=== PATIENT | female | born 1940 | race Caucasian/White ===

== ENCOUNTER → 2020-10-05 06:38 | Outpatient (CLI) | payer MEDICARE, SELFPAY ==
[2020-10-05 23:33] LABS: SARS-CoV-2 RNA PCR Negative
== END ==
PROVIDERS: PCP Internal Medicine; Visit Provider Pain Medicine Pain Medicine
DX: Z01.812 Encounter for preprocedural laboratory examination (principal); Z20.822 Contact with and (suspected) exposure to COVID-19
CPT/HCPCS: C9803; U0003; U0005

== ENCOUNTER 2021-10-08 09:25 | Emergency (ER) | payer MEDICARE, SELFPAY ==
[2021-10-08 09:44] VITALS: BP 154/61; PULSE 73; RESP 16; TEMP 36.9; O2SAT 98
--- NOTE | 2021-10-08 09:53 | ED.URI ---
HPI - URI/Sore Throat General Chief Complaint: Upper Respiratory Infection Stated Complaint: Sore Throat/Dizziness/Fever Time Seen by Provider: 10/08/21 10:37 Source: patient and RN notes reviewed Mode of arrival: ambulatory Limitations: no limitations History of Present Illness HPI Narrative: 81-year-old female presents with concern for 5-day history of sore throat, dry cough, low-grade fever, lightheadedness, fatigue, nasal congestion. She reports she had a negative COVID test yesterday at [facility]. Reports she has been taking [id number] cold and flu medicines with little relief. She is also been taking ibuprofen. She is vaccinated and boosted for COVID. MD elicited complaint: cough and sore throat Related Data Home Medications Medication Instructions Recorded Confirmed ezetimibe 10 mg tablet 10 mg PO DAILY 05/04/19 10/08/21 sertraline 50 mg tablet 50 mg PO DAILY 05/04/19 10/08/21 Enzymedica 1 tab-cap PO AC 05/30/19 10/08/21 Marcia Liver Cleanse 1 tablet PO BID 05/30/19 10/08/21 calcium carbonate-vitamin D3 1 tablet PO DAILY 05/30/19 10/08/21 [Calcium 600 with Vitamin D3] lisinopril 20 mg PO DAILY 10/08/21 10/08/21 Allergies Allergy/AdvReac Type Severity Reaction Status Date / Time Sulfa (Sulfonamide Allergy Intermediate nausea and Verified 10/08/21 10:20 Antibiotics) chills Review of Systems Review of Systems: CONSTITUTIONAL: Reports malaise, fatigue, generalized weakness, low-grade fever. EYES: Denies visual changes, redness, or discharge. ENT: Reports rhinorrhea, congestion, and sore throat. Denies sinus pain, otalgia CARDIOVASCULAR: Denies chest pain, palpitations, or edema. RESPIRATORY: Reports dry cough. Denies dyspnea. GASTROINTESTINAL: Denies abdominal pain, nausea, vomiting, diarrhea SKIN: Denies rash or itching. MUSCULOSKELETAL: Denies myalgia. NEUROLOGIC: Reports headache. All systems reviewed & are unremarkable except as noted in HPI and below PMFSH Past Medical History Medical History Arthritis Depression GERD (gastroesophageal reflux disease) Hyperlipidemia Family History Family History Father Bone cancer Alcoholism Mother Bone cancer Social History Social History Smoking status: Never smoker Alcohol intake: current Substance use: never Substance use type: does not use Comments At time of signature, agree with nursing past medical, surgical, social and family history. There is no relevant family history pertinent to the presenting complaint Exam Narrative: GENERAL: Nontoxic-appearing and in no acute distress. HEAD: Normocephalic EYES: PERRLA, conjunctivae clear ENT: Nares clear, clear discharge. Mucous membranes moist. Oropharynx erythematous without lesions. Tonsils enlarged and without exudate, no drooling, no hoarseness, no trismus, uvula midline. NECK: Supple. No lymphadenopathy CHEST: Clear to auscultation, breath sounds equal. No wheezing, rhonchi, rales, or stridor. No respiratory distress, speaks in full sentences. HEART: Regular rate and rhythm. No murmur heard. SKIN: Warm, dry, no rash. NEURO: Alert and oriented x3. PSYCH: Normal mood and affect Course Course Emergency Course: Patient is aware of diagnosis, understands and agrees to treatment plan. Anticipatory guidance given. Patient agrees to follow-up as directed and is aware of reasons to seek care at the emergency department. Portions of this record may have been created with voice recognition software Level of Care: Express Care Visit Vital Signs Vital signs: Vital Signs Temperature 98.5 F 10/08/21 09:44 Pulse Rate 73 10/08/21 09:44 Respiratory Rate 16 10/08/21 09:44 Blood Pressure 154/61 H 10/08/21 09:44 Pulse Oximetry 98 10/08/21 09:44 Temperature 98.5 F 10/08/21 09:44 Pulse Rate 73
[2021-10-08 20:17] LABS: SARS-CoV-2 RNA PCR Negative
== END 2021-10-08 10:57 | disposition home or self-care (01) ==
PROVIDERS: Emergency Provider Nurse Practitioner; PCP Internal Medicine
DX: J02.0 Streptococcal pharyngitis (principal); Z20.822 Contact with and (suspected) exposure to COVID-19; M19.90 Unspecified osteoarthritis, unspecified site; F32.9 Major depressive disorder, single episode, unspecified; K21.9 Gastro-esophageal reflux disease without esophagitis; E78.5 Hyperlipidemia, unspecified
CPT/HCPCS: 87880; 99213; C9803; G0463; U0003; U0005

== ENCOUNTER 2021-12-31 09:05 | Emergency (ER) | payer MEDICARE, SELFPAY ==
[2021-12-31 09:11] VITALS: BP 180/72; PULSE 70; RESP 20; TEMP 36.6; O2SAT 98
--- NOTE | 2021-12-31 09:22 | ED.EAR ---
HPI - Ear Problem General Chief complaint: Ear Stated complaint: Ear Pain Time Seen by Provider: 12/31/21 09:12 Source: patient and RN notes reviewed History of Present Illness HPI Narrative: Patient is an 81-year-old female who presents the urgent care with complaints of decreased hearing bilaterally. Patient states that yesterday she felt fullness in the right ear and then today she is unable to hear out of both ears. Patient states that she does wear hearing aids. Patient is not done anything [id number] for her issues. No other acute complaints. Denies of any drainage or pain in the ears. No acute distress noted. Patient aware of the a plan of care. Some parts of this dictation were generated by voice recognition software and may contain typographical and/or grammatical inaccuracies. Related Data Home Medications Medication Instructions Recorded Confirmed ezetimibe 10 mg tablet 10 mg PO DAILY 05/04/19 12/31/21 sertraline 50 mg tablet 50 mg PO DAILY 05/04/19 12/31/21 calcium carbonate 600 mg-vitamin 1 tablet PO DAILY 05/30/19 12/31/21 D3 10 mcg (400 unit) chewable tablet (Calcium 600 with Vitamin D3) lisinopril 20 mg tablet 20 mg PO DAILY 10/08/21 12/31/21 esomeprazole magnesium 40 mg 40 mg PO DAILY 12/31/21 12/31/21 capsule,delayed release Allergies Allergy/AdvReac Type Severity Reaction Status Date / Time Sulfa (Sulfonamide Allergy Intermediate nausea and Verified 12/31/21 09:07 Antibiotics) chills Review of Systems Review of Systems: CONSTITUTIONAL: Denies fever, chills, or sweats. EYES: Denies visual changes, redness, or discharge. ENT: Denies rhinorrhea, congestion, sore throat. Reports of decreased hearing bilaterally CARDIOVASCULAR: Denies chest pain, palpitations, or edema. RESPIRATORY: Denies cough or dyspnea. GASTROINTESTINAL: Denies abdominal pain, nausea, vomiting, or diarrhea. GENITOURINARY: Denies dysuria or hematuria. SKIN: Denies rash or itching. MUSCULOSKELETAL: Denies back pain, joint pain, or myalgia. NEUROLOGIC: Denies headache, numbness, or weakness. All other systems reviewed are negative, except as documented in HPI. [facility] Past Medical History Medical History Arthritis Depression GERD (gastroesophageal reflux disease) Hyperlipidemia Family History Family History Father Bone cancer Alcoholism Mother Bone cancer Social History Social History Smoking status: Never smoker Alcohol intake: current Substance use: never Substance use type: does not use Comments At the time of my signature, I reviewed and agree with the nursing past medical, surgical, social, and family history. There is no relevant family history pertinent to the patient complaint. Exam Narrative: GENERAL: This is a well-nourished, well-developed patient, in no apparent distress. HEAD: normocephalic, atraumatic. EYES: PERRL. Sclera clear/white. Vision is grossly intact. EARS: External ears normal, auditory canals clear and without drainage, unable to visualize bilateral TMs due to cerumen impaction. Hearing grossly intact. NOSE: External nose normal with no obvious nasal discharge, nares without redness, no rhinorrhea. THROAT: Mucous membranes moist NECK: Neck supple SKIN: warm, intact with no suspicious lesions or rash, good texture and turgor. NEURO: awake, alert, and oriented to person, place and time. There were no obvious focal neurologic abnormalities. EXTREMITIES: No clubbing, cyanosis, or edema. Course Course Level of Care: Express Care Visit Vital Signs Vital signs: Vital Signs Temperature 98 F 12/31/21 09:11 Pulse Rate 70 12/31/21 09:11 Respiratory Rate 20 12/31/21 09:11 Blood Pressure 180/72 H 12/31/21 09:11 Pulse Oximetry 98 12/31/21 09:11 Oxygen Delivery Room Air 12/31/21
== END 2021-12-31 09:55 | disposition home or self-care (01) ==
PROVIDERS: Emergency Provider Nurse Practitioner Family; PCP Internal Medicine
DX: H61.23 Impacted cerumen, bilateral (principal); M19.90 Unspecified osteoarthritis, unspecified site; K21.9 Gastro-esophageal reflux disease without esophagitis; E78.5 Hyperlipidemia, unspecified; F32.A Depression, unspecified
CPT/HCPCS: 69210; 99213; G0463

== ENCOUNTER 2022-07-24 09:55 | Emergency (ER) | payer MEDICARE, SELFPAY ==
--- NOTE | ~2022-07-24 | XR_ITS ---
EXAMINATION: XR lumbar spine 2-3V DATE: 07/24/2022 10:32 INDICATION: Bilateral low back pain. Leg weakness. TECHNIQUE: 6 views of lumbar spine were obtained. COMPARISON: None. FINDINGS: There is 16 degrees levoscoliosis of thoracolumbar spine. There are chronic compression fra ctures of T12 and L1 with changes of vertebroplasty in T12. There is mildly decreased disc height at L1-L2 and L2-L3 and severely decreased disc height at L4-L5 and L5-S1. There is severe facet joint os teoarthritis in lower lumbar spine. IMPRESSION: 1. Severe lumbar spondylosis. 2. Thoracolumbar levoscoliosis. Reviewed, dictated and finalized at location [facility]
[2022-07-24 10:08] VITALS: BP 137/70; PULSE 91; RESP 18; TEMP 36.9; O2SAT 98
--- NOTE | 2022-07-24 10:16 | ED.BACK ---
HPI - Back Pain/Injury General Chief Complaint: Back Pain/Injury Stated Complaint: pain in upper left back Time Seen by Provider: 07/24/22 10:16 Source: patient, RN notes reviewed and old records reviewed Mode of arrival: ambulatory Limitations: no limitations History of Present Illness HPI Narrative: 82 year old female who presents to [facility] with 2 day history of lumbar back with some upper leg weakness with no radiation of pain down her buttocks or into her legs. Patient reports that she has had a prior compression fracture to her back and had cement inserted into fracture as repair about 2 years ago. Patient reported no recent falls, reports that last week she had a bag of books that she pulled on to move. Patient reports that she has no tingling or numbness sensation in her legs and denies any difficulty passing her urine or stools. Patient is wearing a back support today which she states that she worse when she had compression fracture. Patient has been taking Tylenol using heat and ice, reports that she can't take Ibuprofen due to stomach issues. Patient ambulates with slow steady gait. MD elicited complaint: back pain Pertinent past history: other (prior spinal surgery) Onset (ago): day(s) (2) Pain scale (0-10): 8 Quality: dull Location: lumbar spine Radiation: none Associated symptoms: weakness Treatments prior to arrival: cold therapy, heat therapy and acetaminophen Work related injury: No Related Data Home Medications Medication Instructions Recorded Confirmed ezetimibe 10 mg tablet 10 mg PO DAILY 05/04/19 07/24/22 sertraline 50 mg tablet 50 mg PO DAILY 05/04/19 07/24/22 calcium carbonate 600 mg-vitamin 1 tablet PO DAILY 05/30/19 07/24/22 D3 10 mcg (400 unit) chewable tablet (Calcium 600 with Vitamin D3) lisinopril 20 mg tablet 20 mg PO BID 10/08/21 07/24/22 esomeprazole magnesium 40 mg 40 mg PO DAILY 12/31/21 07/24/22 capsule,delayed release calcium carb-Ca gluc 500 mg tablet PO 07/24/22 calcium-magnesium ox-Mg gluc 250 mg tablet (Calcium Magnesium) Allergies Allergy/AdvReac Type Severity Reaction Status Date / Time Sulfa (Sulfonamide Allergy Intermediate nausea and Verified 07/24/22 10:01 Antibiotics) chills Review of Systems Review of Systems: CONSTITUTIONAL: Denies fever, chills, or sweats. CARDIOVASCULAR: Denies chest pain, palpitations, or edema. RESPIRATORY: Denies cough or dyspnea. GASTROINTESTINAL: Denies abdominal pain, nausea, vomiting, or diarrhea. GENITOURINARY: Denies dysuria or hematuria. SKIN: Denies rash or itching. MUSCULOSKELETAL: Reports lumbar back pain. No other joint pain reported or myalgia. NEUROLOGIC: Denies headache, numbness, reports some weakness to her thigh region, gait steady All systems reviewed & are unremarkable except as noted in HPI and below PMFSH Past Medical History Medical History (Updated 07/25/22 @ 00:01 by Ronni Guaman) Arthritis [place] esophagus Depression GERD (gastroesophageal reflux disease) Hyperlipidemia Hypertension Surgical History Surgical History (Updated 07/24/22 @ 11:26 by Jenae Blanchard NP) H/O cataract removal with insertion of prosthetic lens bilateral History of meniscectomy of left knee Hx of spinal surgery cement placed in compression fracture Family History Family History Father Bone cancer Alcoholism Mother Bone cancer Social History Social History (Updated 07/24/22 @ 11:23 by Jenae Blanchard NP) Smoking status: Former smoker Additional smoking assessment comments: quit 40 years ago ,smoked for 15 years Alcohol intake: current Substance use: never Substance use type: does not use Gender identity (if verbalized by the patient): Female Comments At time of signature, agree with nursing past medical, surgical, social and family history. There is no relevant family history pertinent to the presenting complaint
== END 2022-07-24 10:55 | disposition home or self-care (01) ==
PROVIDERS: Emergency Provider Registered Nurse; PCP Internal Medicine
DX: M47.816 Spondylosis without myelopathy or radiculopathy, lumbar region (principal); Z87.891 Personal history of nicotine dependence; M19.90 Unspecified osteoarthritis, unspecified site; K22.70 Barrett's esophagus without dysplasia; K21.9 Gastro-esophageal reflux disease without esophagitis; E78.5 Hyperlipidemia, unspecified; I10 Essential (primary) hypertension; Z98.42 Cataract extraction status, left eye; Z98.41 Cataract extraction status, right eye; Z96.1 Presence of intraocular lens; F32.A Depression, unspecified
CPT/HCPCS: 72100; 99213; G0463

== ENCOUNTER 2023-07-15 15:04 | Emergency (ER) | payer MEDICARE, SELFPAY ==
[2023-07-15 15:34] VITALS: BP 155/60; PULSE 97; RESP 16; TEMP 36.4; O2SAT 95
--- NOTE | 2023-07-15 15:48 | WPDEDEXPGENP ---
HPI - General Ped General Chief complaint: Unspecified Stated complaint: Constipation Time Seen by Provider: 07/15/23 15:48 Source: patient, family, RN notes reviewed and old records reviewed Mode of arrival: ambulatory Limitations: no limitations Nursing Documentation: reviewed/agree History of Present Illness HPI narrative: 83-year-old female presents to the [facility] with concerns for constipation. Patient reports she has not had a bowel movement in almost 5 days Patient has taken senna with no relief. Patient states that she needs something stronger, discussed [id number] treatment. Patient denies any nausea vomiting. No issues eating or drinking. Denies abdominal pain Related Data Home Medications Medication Instructions Recorded Confirmed ezetimibe 10 mg tablet 10 mg PO DAILY 05/04/19 07/15/23 sertraline 50 mg tablet 50 mg PO DAILY 05/04/19 07/30/22 lisinopril 20 mg tablet 20 mg PO BID 10/08/21 07/15/23 amlodipine 2.5 mg tablet 2.5 mg PO DAILY 07/15/23 07/15/23 sertraline 50 mg tablet 50 mg PO DAILY 07/15/23 07/15/23 Allergies Allergy/AdvReac Type Severity Reaction Status Date / Time Sulfa (Sulfonamide Allergy Intermediate nausea and Verified 07/15/23 15:47 Antibiotics) chills Pediatric Review of Systems All systems ED: reviewed and negative except as stated Constitutional: Denies fever or chills ENT: Denies ear pain Cardiovascular: Denies chest pain Respiratory: Denies cough Gastrointestinal: Reports as per HPI and constipation; Denies abdominal pain, nausea, vomiting or diarrhea Genitourinary: Denies dysuria Musculoskeletal: Denies back pain Integumentary: Denies rash Neurological: Denies headache Psychiatric: Denies change in energy level or fussiness [facility] Past Medical History Medical History Arthritis [place] esophagus Depression GERD (gastroesophageal reflux disease) Hyperlipidemia Hypertension Polyp of duodenum Surgical History Surgical History H/O cataract removal with insertion of prosthetic lens bilateral History of meniscectomy of left knee Hx of spinal surgery cement placed in compression fracture Family History Family History Father Bone cancer Alcoholism Mother Bone cancer Social History Social History Smoking status: Former smoker Additional smoking assessment comments: quit 40 years ago ,smoked for 15 years Alcohol intake: current Substance use: never Substance use type: does not use Gender identity (if verbalized by the patient): Female Comments At the time of my signature, I reviewed and agree with the nursing past medical, surgical, social, and family history. There is no relevant family history pertinent to the patient complaint. Pediatric Exam General: Limitations: no limitations General appearance: well-appearing, well-hydrated, active and well-nourished Head: Head exam: normocephalic and atraumatic Eye: Eye exam: Present normal appearance and PERRL ENT: ENT exam: normal exam, normal oropharynx, mucous membranes moist and normal external ear exam Expanded ENT Exam: External ear exam: Present normal external inspection Neck: Neck exam: Present normal inspection, full ROM and trachea midline; Absent tenderness, meningismus or lymphadenopathy Chest: Chest inspection: Present normal inspection and symmetric chest wall rise Respiratory: Respiratory exam: Present normal lung sounds bilaterally; Absent respiratory distress, wheezes, stridor or accessory muscle use Cardiovascular: Cardiovascular exam: Present regular rate and normal rhythm Abdominal Exam: Abdominal exam: Present soft; Absent tenderness Extremities Exam: Extremities exam: Present normal inspection, full ROM and normal capillary refill; Absent te
== END 2023-07-15 16:02 | disposition home or self-care (01) ==
PROVIDERS: Emergency Provider Nurse Practitioner; PCP Internal Medicine
DX: K59.00 Constipation, unspecified (principal); E78.5 Hyperlipidemia, unspecified; I10 Essential (primary) hypertension; Z79.899 Other long term (current) drug therapy; Z87.891 Personal history of nicotine dependence
CPT/HCPCS: 99211; G0463

== ENCOUNTER 2023-09-01 12:55 | Outpatient (CLI) | payer MEDICARE, SELFPAY | END 2023-09-01 12:56 | disposition home or self-care (01) | PROVIDERS: PCP Internal Medicine; Visit Provider Internal Medicine | DX: H90.3 Sensorineural hearing loss, bilateral (principal) | CPT/HCPCS: 92557; 92567 ==

== ENCOUNTER 2023-11-10 11:30 | Outpatient (RCR) | payer MEDICARE, SELFPAY | END 2024-01-04 23:59 | disposition home or self-care (01) | LOC: ANHBWCAUD 11:30 | PROVIDERS: PCP Internal Medicine; Visit Provider Internal Medicine | DX: Z46.1 Encounter for fitting and adjustment of hearing aid (principal) | CPT/HCPCS: 99199; V5261 ==

== ENCOUNTER 2023-12-22 05:49 | Day surgery (SDC) | payer MEDICARE, SELFPAY ==
[2023-12-15 09:42] VITALS: BMI 24.7
[2023-12-15 14:00] VITALS: BMI 24.5
--- NOTE | 2023-12-21 13:04 | WPDANESEPPF ---
Anes - Initial Pre Proc Eval Procedure: Operation Date: 12/22/23 07:30 Proposed Procedures p Esophagogastroduodenoscopy - Tato Copeland MD s Diagnostic Colonoscopy - Tato Copeland MD Date/Time: 12/21/23 13:04 Surgeon: Tato Copeland MD Pre Op Diagnosis: Iron Deficient Anemia,Gerd,Poly-Stomach & Duodenum Patient Data Age: 83 Gender: F Height: 1.55 m Weight: 59 kg Allergies Allergy/AdvReac Type Severity Reaction Status Date / Time Sulfa (Sulfonamide Allergy Intermediate nausea and Verified 12/22/23 06:11 Antibiotics) chills Home Medications Medication Instructions Recorded Confirmed Type ezetimibe 10 mg tablet 10 mg PO DAILY 05/04/19 12/22/23 History lisinopril 20 mg tablet 20 mg PO BID 10/08/21 12/22/23 History amlodipine 2.5 mg tablet 2.5 mg PO DAILY 07/15/23 12/22/23 History esomeprazole magnesium 40 mg 40 mg PO DAILY #30 caps 08/31/23 12/22/23 Rx capsule,delayed release sertraline 100 mg tablet 100 mg PO DAILY 12/15/23 12/22/23 History Patient hx anesthesia problems: none Family hx anesthesia problems: none Results Review: All pre-operative results and documents have been reviewed as part of the pre-operative evaluation. [facility] Past Medical History Medical History Arthritis [place] esophagus Depression GERD (gastroesophageal reflux disease) Hyperlipidemia Hypertension Polyp of duodenum Surgical History Surgical History H/O cataract removal with insertion of prosthetic lens bilateral History of meniscectomy of left knee Hx of spinal surgery cement placed in compression fracture Family History Family History Father Bone cancer Alcoholism Mother Bone cancer Social History Social History Smoking status: Former smoker Tobacco type: cigarettes Additional smoking assessment comments: quit 40 years ago ,smoked for 15 years Alcohol intake: current Alcohol use details: occasional Substance use: never Substance use type: does not use Living arrangements: with family Gender identity (if verbalized by the patient): Female Spiritual care concerns: No Anes - Eval Final PreProcedure Day of Procedure 12/21/23 13:04 Patient weight: normal Heart: regular rate and rhythm Lungs: clear to auscultation and normal air movement Airway: Mallampati scale class II Neurological: alert and oriented Last oral intake: >/= 8 hours ASA classification: II Emergent: no Anesthetic plan: proceed Anesthesia type and monitoring: general GIVS and standard monitoring Results Review: All pre-operative results and documents have been reviewed as part of the pre-operative evaluation. Informed Consent: The patient's anesthetic plan and its attendant risks and benefits were discussed with the patient/family/POA. Questions were solicited and answers provided to the satisfaction of the patient/family/POA.
[2023-12-22 06:20] VITALS: BP 142/56; PULSE 81; RESP 18; TEMP 36.3; O2SAT 99; BMI 24.4
[2023-12-22] MEDS: LACTATED RINGERS 1,000 ML 150 ML IV CONT (06:35)
--- NOTE | 2023-12-22 07:23 | WPDHPUPDATE1 ---
History and Physical Update Update Date/Time: 12/22/23 07:23 History and Physical has been reviewed, including an updated exam of the patient. There are NO changes in the patient's condition. Risks, benefits, and alternatives have been discussed and questions answered. Patient agrees to proceed with procedure.
[2023-12-22 07:57] VITALS: BP 118/49; PULSE 74; RESP 14; O2SAT 98
[2023-12-22 08:07] VITALS: BP 113/60; PULSE 80; RESP 14; O2SAT 98
[2023-12-22 08:17] VITALS: BP 136/61; PULSE 77; RESP 16; O2SAT 100
--- NOTE | 2023-12-22 09:30 | WPDANESPN ---
Anes - Prog Note Post-Op Date/Time: 12/22/23 09:30 Cardiovascular status: normal Respiratory status: normal Airway patency: baseline Mental status: baseline Post-Op hydration status: normal Vital Signs: Last Vital Signs Temp 36.3 C L 12/22/23 06:20 Pulse 77 12/22/23 08:17 Resp 16 12/22/23 08:17 BP 136/61 12/22/23 08:17 Pulse Ox 100 12/22/23 08:17 O2 Del Method Room Air 12/22/23 08:17 Pain Score (VAS): 0 I/O: Intake & Output 12/21/23 12/22/23 12/22/23 23:59 07:59 15:59 Intake Total 500 200 Balance 500 200 Post-procedural complaints: none Patient Feedback: Patient satisfied with anesthetic care. Other Findings: Patient vital signs back to baseline. Patient denies nausea and vomiting. Patient's pain under control. Patient OK for discharge.
== END 2023-12-22 08:35 | disposition home or self-care (01) ==
PROVIDERS: PCP Internal Medicine; Visit Provider Internal Medicine Gastroenterology
PROC: 0DJ08ZZ Inspection of Upper Intestinal Tract, Via Natural or Artificial Opening Endoscopic (ICD-10-PCS; CPT 43235; principal; 2023-12-22 07:30)
PROC: 0DJD8ZZ Inspection of Lower Intestinal Tract, Via Natural or Artificial Opening Endoscopic (ICD-10-PCS; CPT 45378; 2023-12-22 07:30)
DX: D50.9 Iron deficiency anemia, unspecified (principal); K57.30 Diverticulosis of large intestine without perforation or abscess without bleeding
CPT/HCPCS: 45378; 43235

== ENCOUNTER 2023-12-22 10:01 | Outpatient (NON) | payer MEDICARE, SELFPAY | END 2023-12-22 10:02 | disposition home or self-care (01) | LOC: ANHLAB 12-23 10:03 | PROVIDERS: PCP Internal Medicine; Visit Provider Internal Medicine Gastroenterology | DX: D50.9 Iron deficiency anemia, unspecified (principal) | CPT/HCPCS: 88305 ==